=== PATIENT | female | born 1950 | race Caucasian/White ===

== ENCOUNTER 2016-12-28 08:28 | Inpatient (IN) | payer MEDICARE, OTHER ==
--- NOTE | ~2016-12-28 | HP ---
History And Physical [address] [id number] [facility] [place]. [address] NAME: JOON CARSON : 50 STATUS : ADM IN [facility]#: [id number] AGE: 66 ADM/REG DATE : 12/28/16 MR#: [id number] REPORT SERV DATE: 12/29/16 DICTATED BY: ROLAND QUINTERO III DATE: 12/28/16 REPORT STATUS : Draft TRANSCRIBED BY: MOLLY DATE: 12/28/16 DATE OF ADMISSION: 12/28/2016 HISTORY OF PRESENT ILLNESS: This 66-year-old female who was admitted to hospital emergently with evidence for small bowel obstruction. The patient complains of abdominal pain. The pain began yesterday afternoon. She describes diffuse nonlocalized abdominal pain. This has been associated with profuse nausea and vomiting. The patient's last bowel movement was Monday of this week. She had some diarrhea at that time. The patient presented to our emergency room today and was found to have radiographic evidence for small bowel obstruction. The patient states she has had three small bowel obstructions in the past, which have been treated nonoperatively. She states these occur about every three years. The patient states that she feels much better after an NG tube was placed. PAST MEDICAL HISTORY: 1. History of Bearden's esophagitis, treated with endoscopic RFA treatments. 2. History of multiple small bowel obstructions in the past, the last being about three years ago. 3. History of COPD. 4. Coronary artery disease. 5. History of myocardial infarction the past. 6. History of coronary artery stent placement, the last stent placement eight months ago with the patient being on Brilinta since that time. 7. History of pancreatitis. 8. Gastroesophageal reflux disease. 9. Degenerative joint disease. PAST SURGICAL HISTORY: Includes Ash fundoplication 30 years ago, cholecystectomy, hysterectomy, appendectomy. SOCIAL HISTORY: The patient is . She lives locally. She has a previous history of tobacco abuse. She has no history of alcohol use. FAMILY HISTORY: Positive for coronary artery disease and pulmonary disease and leukemia. ALLERGIES: MONTELUKAST, ADHESIVE TAPE, ESOMEPRAZOLE. MEDICATIONS: Albuterol, Augmentin, aspirin, Lipitor, Symbicort, Coreg, Nexium, Lasix, Atrovent, Linzess, Singulair, Roxicodone, prednisone, Brilinta, Spiriva. REVIEW OF SYSTEMS: The patient's 14-point review of systems is otherwise unremarkable. History And Physical [address] [address] NAME: JOON CARSON : 50 STATUS : ADM IN PAT#: [id number] AGE: 66 ADM/REG DATE : 12/28/16 MR#: [id number] REPORT SERV DATE: 12/29/16 DICTATED BY: ROLAND QUINTERO III DATE: 12/28/16 REPORT STATUS : Draft TRANSCRIBED BY: MOLLY DATE: 12/28/16 OBJECTIVE PHYSICAL EXAMINATION: GENERAL: This is an obese female, in no acute distress. She is alert and oriented x3. HEENT: Unremarkable. Cranial nerves II through XII are normal. LUNGS: Clear. CARDIAC: Normal. ABDOMEN: Obese and soft, nontender. She has a large overhanging panniculus. EXTREMITIES: Unremarkable. VITAL SIGNS: Blood pressure 115/60, pulse 79, temperature 98.8. LABORATORY DATA: White blood cell count elevated at 21,000, hematocrit 45. Electrolytes are unremarkable. Liver enzymes are normal. CT scan of the abdomen and pelvis which I reviewed shows evidence for distal small bowel obstruction. There is noted to be some gas and stool in the colon. ASSESSMENT: A 66-year-old female with: 1. Partial small bowel obstruction, with no evidence for peritonitis. 2. Elevated white blood cell count, which may be related to steroids. 3. History of recurrent small bowel obstructions in the past, treated nonoperatively. 4. Obesity. 5. Chronic obstructive pulmonary disease secondary to tobacco abuse. 6. Tobacco abuse. 7. History of Bearden's esophagitis, treated nonoperatively. 8. Coronary artery disease. 9. History of coronary artery stent placement, requiring chronic anticoagulation. 10.History of recent sinus infection for which the patient was taking Augmentin which started three days ago. PLAN: The patient has been admitted and started on parenteral fluids, bowel rest, and NG suction. I have explained to the patient and her that we will try to manage this nonoperatively if possible. I have explained that about 80% of the time this can be managed nonoperatively. If she does not respond to nonoperative management then surgical intervention will be required. We will continue the patient on recurrent Brilinta. This plan has been explained to the patient. Their questions have been answered. She understands and agrees to this as planned. MANI/MOLLY Roland Quintero III, M.D. / [id number] CC: History And Physical [address] [place] [address] NAME: JOON CARSON : 50 STATUS : ADM IN [facility]#: [id number] AGE: 66 ADM/REG DATE : 12/28/16 MR#: [id number] REPORT SERV DATE: 12/29/16 DICTATED BY: ROLAND QUINTERO III DATE: 12/28/16 REPORT STATUS : Draft TRANSCRIBED BY: MOLLY DATE: 12/28/16 Willow Dan III, M.D.
--- NOTE | ~2016-12-28 | DS ---
Discharge Summary [facility] [address] [place]. [address] NAME: JOON CARSON : 50 STATUS : DIS IN PAT#: [id number] AGE: 66 ADM/REG DATE : 12/28/16 MR#: [id number] REPORT SERV DATE: 01/10/17 DICTATED BY: ROLAND QUINTERO III DATE: 01/09/17 REPORT STATUS : Draft TRANSCRIBED BY: MOLLY DATE: 01/09/17 Data Collection from hospitalization DISCHARGE DIAGNOSIS(ES): 1. Partial small bowel obstruction - resolved. 2. History of Bearden's esophagitis. 3. History of chronic obstructive pulmonary disease. 4. Coronary artery disease. 5. History of myocardial infarction. 6. History of pancreatitis. 7. Gastroesophageal reflux disease. 8. Degenerative joint disease. 9. Former smoker. CONSULTATIONS: None. PROCEDURES PERFORMED: CT scan of the abdomen and pelvis without contrast, 12/28/2016. MEDICATIONS: Proventil two puffs via inhaler every four hours as needed and one nebulized inhalation twice a day as needed; Augmentin 875 mg twice a day; aspirin 81 mg at bedtime; Lipitor 40 mg at bedtime; Symbicort two puffs via inhaler twice a day; Coreg 3.125 mg at bedtime; Nexium 40 mg at bedtime; Lasix 20 mg daily as needed; Atrovent one nebulized inhalation twice a day as needed; Linzess 290 mg at bedtime; Singulair 10 mg at bedtime; Roxicodone 5 mg four times a day as needed; prednisone 2.5 mg daily; Brilinta 90 mg twice a day; Spiriva one capsule via inhaler daily; and magic mouthwash 10 mL four times a day as needed. CONDITION AT DISCHARGE: Stable. DISPOSITION: The patient was discharged home on a full liquid diet with activities as instructed. She would follow up with me as needed. HOSPITAL COURSE: This is a 66-year-old female who presented emergently to the hospital and was found to have evidence for small bowel obstruction. The patient said she has had three small bowel obstructions in the past which had been treated nonoperatively. She said these occur about every three years. The patient said she feels much better after the NG tube was placed. She was admitted to the hospital at this time for further evaluation and treatment. Upon admission, CT scan of the abdomen and pelvis showed evidence for distal small bowel obstruction. There were some gas and stool in the colon. White count was elevated at 21,000. Electrolytes were unremarkable. Liver enzymes were normal. Parenteral fluids, bowel rest, and NG suction had begun. We are going to try and manage this nonoperatively if possible. Brilinta was going to be continued. The following day, she said she was feeling better. She had less pain. NG tube was still in place. She remained n.p.o. A KUB was going to be performed. On 12/30/2016, she said she was feeling better. She was beginning to pass some gas per rectum. She had no complaints of abdominal pain. Her partial small bowel obstruction was improving. A small-bowel follow-through was going to be performed. NG tube was discontinued. On 12/31/2016, she felt well and wanted to go home. She was Discharge Summary [address] [address] NAME: JOON CARSON : 50 STATUS : DIS IN PAT#: [id number] AGE: 66 ADM/REG DATE : 12/28/16 MR#: [id number] REPORT SERV DATE: 01/10/17 DICTATED BY: ROLAND QUINTERO III DATE: 01/09/17 REPORT STATUS : Draft TRANSCRIBED BY: MOLLY DATE: 01/09/17 tolerating liquids. She had no nausea or vomiting. She had no abdominal pain. Discharge instructions were given. Her diet was advanced. Due to her improved and stable condition, she was discharged home with the above-stated instructions. Information collected by: Ami Acuna I submit the above information as my discharge summary. TG/MOLLY Roland Quintero III, M.D. / [id number] CC: Willow Dan III, M.D.
[~2016-12-28 08:28] MED LIST: ADVAIR250 INH; ALBUTEROL5 INH; ALEVE220 MG PO; AMITIZA24 PO; AMITIZA8 MCG PO; ASAB PO; ASABAYER PO; BRILINTA90 MG PO; CALTRA600D PO; CLARIT10 PO; COMBIVENT INH; COMBIVENT INHAL15 GM INH; COMBIVENT RESPIM4 GM INH; COREG3 PO; COREG6 PO; CYANO1000T PO; DUONEB INH; FLEX PO; ISOSORB DIN30 MG PO; KLONO5 PO; L20 PO; L40 PO; L80 PO; LEVAQUIN5T PO; LEVAQUIN750 MG PO; LINZESS 290 M290 MCG PO; LIPITOR10 PO; LIPITOR20 PO; LIPITOR40 PO; NEXIUM20 M1 PO; NEXIUM40 PO; NORCO1 TA1 PO; NORCO1 TA2 PO; OXYCOD PO; P5 PO; PCET PO; PROAIR HFA INH; PROTONIX20 MG PO; PROVHFA INH; SINGULAIR1 PO; SPIRIVA INH; SYMBICORT 160/41 INH INH; T PO; VITAMIN B-12; VITAMIN D1000 UNI1 PO; ZOCOR40 PO
[2016-12-28 08:29] LABS: BASOPHILS 0.2 %; BASOPHILS ABSOLUTE 0.04 10/3/uL (0.0-0.16); EOSINOPHILS 0.7 %; EOSINOPHILS ABSOLUTE 0.16 10/3/uL (0.0-0.53); IMMATURE GRANULOCYTES 0.3 %; IMMATURE GRANULOCYTES ABSOLUTE 0.07 10/3/uL (0.0-0.11); LYMPHOCYTES 10.7 %; MEAN CORPUSCULAR HEMOGLOB 30.1 pg (26.0-34.0); MEAN CORPUSCULAR VOLUME 88.5 fL (80-100); MEAN PLATELET VOLUME 10.7 fL (9.2-13.0); MONOCYTES 5.2 %; MONOCYTES ABSOLUTE 1.11 10/3/uL (0.21-1.20); NEUTROPHILS 82.9 %; NEUTROPHILS ABSOLUTE 17.79 10/3/uL (2.02-8.40); PLATELET COUNT 222 10/3/uL (150-400); RBC DISTRIBUTION WIDTH 14.6 % (12.0-16.0)
[2016-12-28 08:30] LABS: ER CBC TAT 0 Hrs 18 Mins; HEMATOCRIT 45.6 % (36.0-48.0); HEMOGLOBIN 15.5 g/dL (12.0-16.0); MANUAL DIFF NO %; RED CELL COUNT 5.15 10/6/uL (4.0-5.6); WHITE BLOOD CELLS 21.5 10/3/uL (4.5-10.5)
[2016-12-28 08:44] LABS: CHLORIDE, SERUM 107 MMOL/L (96-112); CO2 (CARBON DIOXIDE) 22 MMOL/L (24-34); CREATININE 1.22 MG/DL (0.55-1.02); GFR AFRICAN AMERICAN 53 ML/MIN (>=60); GFR NON AFRICAN AMERICAN 46 ML/MIN (>=60); LACTATE 0.9 MMOL/L (0.3-2.4); POTASSIUM, SERUM 4.4 MMOL/L (3.5-5.3); SGPT(ALT) 33 U/L (5-65); SODIUM, SERUM 139 MMOL/L (135-148); TOTAL BILIRUBIN 0.5 MG/DL (0-1.2); TOTAL PROTEIN 7.9 G/DL (6.0-8.5); TROPONIN I <0.02 NG/ML (<0.05)
[2016-12-28 08:49] LABS: A/G RATIO 1.1 (0.7-1.9); ALBUMIN 4.1 G/DL (3.5-5.0); ALKALINE PHOSPHATASE 57 U/L (45-117); BUN (BLOOD UREA NITROGEN) 25 MG/DL (6-23); GLOBULIN 3.8 G/DL (2.5-4.1); GLUCOSE, SERUM 156 MG/DL (60-99); SGOT(AST) 25 U/L (5-40)
[2016-12-28] MEDS ORDERED: AUG875 PO (09:14)
[2016-12-28] MEDS ORDERED: PREDNISONE2.5 MG PO (09:17)
[2016-12-28] MEDS ORDERED: OXYCOD PO (09:17)
[2016-12-28] MEDS ORDERED: SYMBICORT 160/41 INH INH (09:18)
[2016-12-28] MEDS ORDERED: SPIRIVA INH (09:18)
[2016-12-28] MEDS ORDERED: MAGIC MOUTHWASH PO (09:19)
[2016-12-28] MEDS ORDERED: ATROVENTUD INH (09:26)
[2016-12-28 17:31] LABS: ASCORBIC ACID (UR NOT ORDER) 40 (NEG); BILIRUBIN, URINE NEGATIVE (NEG); ER URINALYSIS TAT 0 Hrs 20 Mins; KETONE, URINE NEGATIVE (NEG); LEUKOCYTE ESTERASE(NOT OR NEG (NEG); NITRITE (URINE) NEG (NEG); WBC (NOT ORDERED) (RFLEX) 2 (0-5)
[2016-12-29 05:05] LABS: BASOPHILS 0.3 %; BASOPHILS ABSOLUTE 0.03 10/3/uL (0.0-0.16); EOSINOPHILS 0.3 %; EOSINOPHILS ABSOLUTE 0.04 10/3/uL (0.0-0.53); HEMOGLOBIN 12.7 g/dL (12.0-16.0); IMMATURE GRANULOCYTES 0.3 %; IMMATURE GRANULOCYTES ABSOLUTE 0.04 10/3/uL (0.0-0.11); LYMPHOCYTES ABSOLUTE 1.67 10/3/uL (0.67-4.30); MEAN CORPUSCULAR HEMOGLOB 29.6 pg (26.0-34.0); MEAN PLATELET VOLUME 10.6 fL (9.2-13.0); MONOCYTES 7.4 %; MONOCYTES ABSOLUTE 0.89 10/3/uL (0.21-1.20); NEUTROPHILS 77.7 %; PLATELET COUNT 172 10/3/uL (150-400); RBC DISTRIBUTION WIDTH 15.1 % (12.0-16.0); RED CELL COUNT 4.29 10/6/uL (4.0-5.6)
[2016-12-29 05:11] LABS: HEMATOCRIT 39.9 % (36.0-48.0); MANUAL DIFF NO %; MEAN CORPUS HGB CONC 31.8 g/dL (32.0-36.0)
[2016-12-29 07:15] LABS: CHLORIDE, SERUM 109 MMOL/L (96-112); CO2 (CARBON DIOXIDE) 24 MMOL/L (24-34); CREATININE 0.82 MG/DL (0.55-1.02); GFR AFRICAN AMERICAN 86 ML/MIN (>=60); GFR NON AFRICAN AMERICAN 75 ML/MIN (>=60); SGOT(AST) 17 U/L (5-40); SGPT(ALT) 19 U/L (5-65); SODIUM, SERUM 141 MMOL/L (135-148)
[2016-12-29 07:16] LABS: A/G RATIO 1.4 (0.7-1.9); ALBUMIN 2.7 G/DL (3.5-5.0); ALKALINE PHOSPHATASE 32 U/L (45-117); BUN (BLOOD UREA NITROGEN) 19 MG/DL (6-23); CALCIUM, SERUM 7.5 MG/DL (8.5-10.4); GLUCOSE, SERUM 98 MG/DL (60-99); TOTAL PROTEIN 4.7 G/DL (6.0-8.5)
[2016-12-30 11:09] LABS: BASOPHILS 0.2 %; BASOPHILS ABSOLUTE 0.02 10/3/uL (0.0-0.16); EOSINOPHILS 0.6 %; EOSINOPHILS ABSOLUTE 0.08 10/3/uL (0.0-0.53); IMMATURE GRANULOCYTES 0.2 %; IMMATURE GRANULOCYTES ABSOLUTE 0.02 10/3/uL (0.0-0.11); LYMPHOCYTES 6.3 %; LYMPHOCYTES ABSOLUTE 0.79 10/3/uL (0.67-4.30); MEAN CORPUS HGB CONC 32.4 g/dL (32.0-36.0); MEAN CORPUSCULAR HEMOGLOB 29.7 pg (26.0-34.0); MEAN CORPUSCULAR VOLUME 91.6 fL (80-100); MEAN PLATELET VOLUME 10.1 fL (9.2-13.0); MONOCYTES 6.4 %; NEUTROPHILS 86.3 %; NEUTROPHILS ABSOLUTE 10.76 10/3/uL (2.02-8.40); PLATELET COUNT 165 10/3/uL (150-400); RBC DISTRIBUTION WIDTH 14.6 % (12.0-16.0); RED CELL COUNT 4.04 10/6/uL (4.0-5.6); WHITE BLOOD CELLS 12.5 10/3/uL (4.5-10.5)
[2016-12-30 11:10] LABS: MANUAL DIFF NO %
[2016-12-30 12:20] LABS: CALCIUM, SERUM 8.1 MG/DL (8.5-10.4); CHLORIDE, SERUM 113 MMOL/L (96-112); CO2 (CARBON DIOXIDE) 23 MMOL/L (24-34); CREATININE 0.83 MG/DL (0.55-1.02); GFR AFRICAN AMERICAN 85 ML/MIN (>=60); GFR NON AFRICAN AMERICAN 73 ML/MIN (>=60); POTASSIUM, SERUM 4.5 MMOL/L (3.5-5.3); SODIUM, SERUM 146 MMOL/L (135-148)
[2016-12-30 12:21] LABS: BUN (BLOOD UREA NITROGEN) 11 MG/DL (6-23); GLUCOSE, SERUM 133 MG/DL (60-99)
[2016-12-31 08:18] LABS: BASOPHILS 0.2 %; BASOPHILS ABSOLUTE 0.02 10/3/uL (0.0-0.16); EOSINOPHILS 2.7 %; EOSINOPHILS ABSOLUTE 0.25 10/3/uL (0.0-0.53); HEMATOCRIT 38.9 % (36.0-48.0); HEMOGLOBIN 12.2 g/dL (12.0-16.0); IMMATURE GRANULOCYTES 0.3 %; IMMATURE GRANULOCYTES ABSOLUTE 0.03 10/3/uL (0.0-0.11); LYMPHOCYTES 13.8 %; MEAN CORPUS HGB CONC 31.4 g/dL (32.0-36.0); MEAN CORPUSCULAR HEMOGLOB 29.2 pg (26.0-34.0); MEAN CORPUSCULAR VOLUME 93.1 fL (80-100); MEAN PLATELET VOLUME 10.9 fL (9.2-13.0); MONOCYTES 6.3 %; MONOCYTES ABSOLUTE 0.59 10/3/uL (0.21-1.20); NEUTROPHILS 76.7 %; NEUTROPHILS ABSOLUTE 7.24 10/3/uL (2.02-8.40); PLATELET COUNT 175 10/3/uL (150-400); RBC DISTRIBUTION WIDTH 14.8 % (12.0-16.0); RED CELL COUNT 4.18 10/6/uL (4.0-5.6); WHITE BLOOD CELLS 9.4 10/3/uL (4.5-10.5)
[2016-12-31 08:20] LABS: MANUAL DIFF NO %
[2016-12-31 08:30] LABS: BUN (BLOOD UREA NITROGEN) 8 MG/DL (6-23); CALCIUM, SERUM 8.1 MG/DL (8.5-10.4); CHLORIDE, SERUM 110 MMOL/L (96-112); CO2 (CARBON DIOXIDE) 22 MMOL/L (24-34); CREATININE 0.88 MG/DL (0.55-1.02); GFR AFRICAN AMERICAN 79 ML/MIN (>=60); GFR NON AFRICAN AMERICAN 68 ML/MIN (>=60); POTASSIUM, SERUM 4.3 MMOL/L (3.5-5.3); SODIUM, SERUM 141 MMOL/L (135-148)
[2016-12-31 08:31] LABS: GLUCOSE, SERUM 106 MG/DL (60-99)
== END 2016-12-31 12:39 | disposition home or self-care (01) | DRG 390 ==
LOC: ER 08:28 → 5SO 09:46
PROVIDERS: Nurse Practitioner; Surgery
DX: K56.69 Other intestinal obstruction (principal); J44.9 Chronic obstructive pulmonary disease, unspecified; J45.909 Unspecified asthma, uncomplicated; I25.2 Old myocardial infarction; I25.10 Atherosclerotic heart disease of native coronary artery without angina pectoris; F17.210 Nicotine dependence, cigarettes, uncomplicated; Z95.5 Presence of coronary angioplasty implant and graft; Z98.890 Other specified postprocedural states; Z90.710 Acquired absence of both cervix and uterus; Z90.49 Acquired absence of other specified parts of digestive tract; Z79.899 Other long term (current) drug therapy; Z79.82 Long term (current) use of aspirin
CPT/HCPCS: 36598; 74000; 74176; 74250; 80048; 80053; 81001; 83605; 83690; 84484; 85025; 93005; 94640; 96374; 99285; A9270-GY; J1170; J2405

== ENCOUNTER 2017-02-01 05:28 | Day surgery (SDC) | payer MEDICARE, OTHER ==
[2017-01-27 13:27] LABS: BASOPHILS 0.2 %; BASOPHILS ABSOLUTE 0.02 10/3/uL (0.0-0.16); EOSINOPHILS 2.8 %; EOSINOPHILS ABSOLUTE 0.25 10/3/uL (0.0-0.53); HEMATOCRIT 39.8 % (36.0-48.0); HEMOGLOBIN 13.2 g/dL (12.0-16.0); IMMATURE GRANULOCYTES 0.2 %; IMMATURE GRANULOCYTES ABSOLUTE 0.02 10/3/uL (0.0-0.11); LYMPHOCYTES 19.3 %; LYMPHOCYTES ABSOLUTE 1.75 10/3/uL (0.67-4.30); MEAN CORPUSCULAR HEMOGLOB 29.4 pg (26.0-34.0); MEAN PLATELET VOLUME 12.2 fL (9.2-13.0); MONOCYTES 7.2 %; MONOCYTES ABSOLUTE 0.65 10/3/uL (0.21-1.20); NEUTROPHILS 70.3 %; NEUTROPHILS ABSOLUTE 6.39 10/3/uL (2.02-8.40); PLATELET COUNT 181 10/3/uL (150-400); RBC DISTRIBUTION WIDTH 14.9 % (12.0-16.0); RED CELL COUNT 4.49 10/6/uL (4.0-5.6); WHITE BLOOD CELLS 9.1 10/3/uL (4.5-10.5)
[2017-01-27 13:28] LABS: MANUAL DIFF NO %; MEAN CORPUS HGB CONC 33.2 g/dL (32.0-36.0); MEAN CORPUSCULAR VOLUME 88.6 fL (80-100)
--- NOTE | ~2017-02-01 | OP ---
Record Of Operation [facility] [address] [place]. [address] NAME: JOON MADRID : 50 STATUS : [place] [facility] [place] PAT#: [id number] AGE: 66 ADM/REG DATE : 02/01/17 MR#: [id number] REPORT SERV DATE: 02/01/17 DICTATED BY: ROLAND QUINTERO III DATE: 02/01/17 REPORT STATUS : Draft TRANSCRIBED BY: MOLLY DATE: 02/01/17 DATE OF PROCEDURE: 02/01/2017 PREOPERATIVE DIAGNOSIS: Bearden's esophagitis requiring frequent endoscopy and need for frequent IV access, with poor peripheral IV access. POSTOPERATIVE DIAGNOSIS: Bearden's esophagitis requiring frequent endoscopy and need for frequent IV access, with poor peripheral IV access. PROCEDURE: Right subclavian vein Port-A-Cath placement with fluoroscopy and removal of nonfunctioning left subclavian vein Port-A-Cath. ANESTHESIA: General with intubation. COMPLICATIONS: None. ESTIMATED BLOOD LOSS: Less than 5 mL. SPECIMENS: Port-A-Cath for identification. DRAINS: None. LAP AND SPONGE COUNT: Correct x3. BRIEF HISTORY: This 66-year-old female has a history of Bearden's esophagitis requiring frequent endoscopy for treatment. She has very poor peripheral IV access. She has a Port-A Cath, which was placed a year ago which is no longer functioning. It was felt that removal of this Port-A-Cath with a new Port-A-Cath was indicated. This procedure, the risks, benefits, and alternatives including, but not limited to the risk for bleeding, infection, pneumothorax, air embolus, pericardial tamponade, failure of the new port to function, infection of the port or subclavian vein thrombosis requiring removal the port, pneumothorax, and unforeseen complications including deep venous thrombosis, pulmonary embolus, myocardial infarction, stroke, pneumonia, and were fully explained to the patient prior to surgery. Her questions were answered. She understood the risks and agreed to surgery as planned. DESCRIPTION OF PROCEDURE: After being properly identified and after discussing risks of surgery with her again in the preoperative area, the patient was taken to the operating room and placed in the supine position on the operating room table. General anesthesia was administered, and she was intubated without difficulty. The upper chest and neck areas were prepped and draped sterilely in the usual fashion. After an appropriate "time-out" per JCAHO standards, an 18-gauge needle was used to identify the right subclavian vein. The vein was identified on the first pass of the needle. A guidewire was passed through the needle and the needle was removed. Fluoroscopy was performed. Initially, the guidewire went preferentially into the internal jugular vein. Several passes were made under fluoroscopy in order to change the position of the guidewire and direct it into the superior Record Of Operation [address] [address] NAME: JOON MADRID : 50 STATUS : REG [facility] PAT#: [id number] AGE: 66 ADM/REG DATE : 02/01/17 MR#: [id number] REPORT SERV DATE: 02/01/17 DICTATED BY: ROLAND QUINTERO III DATE: 02/01/17 REPORT STATUS : Draft TRANSCRIBED BY: MOLLY DATE: 02/01/17 vena cava. After this was confirmed, a small transverse incision was made at the exit site of the guidewire from the skin. A subcutaneous infraclavicular pocket was made of the appropriate size for the Port-A-Cath housing. The Port-A-Cath housing and tubing were assembled, and flushed with heparin solution, and the tubing cut to the appropriate length. The introducer was then placed over the guidewire. The guidewire and inner dilator were removed. The Port-A-Cath tubing was then placed through the outer sheath as this was peeled away. This went very smoothly. The Port-A-Cath housing was positioned in the infraclavicular pocket. It was secured in place with 2-0 silk sutures. Repeat fluoroscopy was performed, confirming the tip of the Port-A-Cath tubing to be in the correct position in the superior vena cava. The port was accessed with a Grissom needle. It was aspirated and blood easily returned. It was flushed with a heparin solution and noted to flush easily. Hemostasis was assured. The subcutaneous tissue was closed with a running 3-0 Vicryl suture. The skin was closed with running subcuticular 4-0 Monocryl stitch. The incision was injected with 0.5% Marcaine. We then turned our attention to the left infraclavicular Port-A-Cath. A small incision was made directly over the Port-A-Cath. The incision was continued through the subcutaneous tissue. Hemostasis was controlled with cautery. The capsule around the Port-A-Cath was divided. The sutures holding the Port-A-Cath in place were divided. The Port-A-Cath housing and tubing were removed. The entire tubing was removed. Pressure was held at the exit site to prevent air embolus. This exit site was closed with a 3-0 Vicryl suture. Hemostasis was assured. The subcutaneous tissue was closed with a running 3-0 Vicryl suture. The skin was closed with a running subcuticular 4- 0 Monocryl stitch. The incision was injected with 0.5% Marcaine. Dressings were applied. Anesthesia was reversed, and the patient was taken to the recovery room in stable condition. She tolerated the procedure well. Her family was informed of results of surgery. The patient was discharged when stable and comfortable and after chest x-ray has been cleared per Radiology. Her family was advised that she should keep wounds clean and dry for 48 hours, that she should not drive for two to three days after surgery or while using narcotics, and that she should resume her usual medications. They are advised that she should resume her anticoagulants, i.e., aspirin and Brilinta, tomorrow. She was asked to return in two weeks for followup or sooner if any fever, chills, wound drainage, or other problems prior to that time. She was given a prescription for Percocet 7.5 one t.i.d., #12, as needed for pain, which she was advised not to use while driving or with other narcotics. MANI/MOLLY Roland Quintero III, M.D. / [id number] CC: Willow Dan III, M.D.
--- NOTE | ~2017-02-01 | PREOPHP ---
PreOp History and Physical [address] [place]. [address] NAME: JOON MADRID : 50 STATUS : [facility]#: [id number] AGE: 66 ADM/REG DATE : 02/01/17 MR#: [id number] REPORT SERV DATE: 02/23/17 DICTATED BY: ROLAND QUINTERO III DATE: 01/22/17 REPORT STATUS : Draft TRANSCRIBED BY: MOLLY DATE: 01/22/17 HISTORY OF PRESENT ILLNESS: This 66-year-old female comes to the operating room for removal of a nonfunctioning Port-A-Cath and placement of a new Port-A-Cath. The patient has a history of chronic poor peripheral IV access. She has a history of Bearden's esophagitis and multiple medical problems requiring frequent inpatient and outpatient hospitalization and the need for chronic IV access. She has a history of severe Bearden esophagitis requiring frequent endoscopic surveillance. She has a very poor peripheral IV access. She has a Port-A-Cath, which was placed one year ago, which is not functioned well since that time and is now no longer functioning. She comes now for removal of this nonfunctioning Port-A-Cath and placement of a new Port-A-Cath. PAST MEDICAL HISTORY: 1. History of Bearden esophagitis, requiring frequent endoscopic treatments. 2. History of multiple small bowel obstructions in the past, most recently requiring hospitalization with NG suction. 3. COPD. 4. History of coronary artery disease. 5. History of myocardial infarction in the past. 6. History of coronary artery stent placement with the last stent being placed approximately eight months ago with the patient being on Brilinta since that time. 7. Pancreatitis. 8. History of gastroesophageal reflux disease. PAST SURGICAL HISTORY: Includes Ash fundoplication, cholecystectomy, hysterectomy, appendectomy, and Port-A-Cath placement. SOCIAL HISTORY: The patient is . She lives locally. She has a previous tobacco abuse. She has no history of alcohol use. FAMILY HISTORY: Positive for coronary artery disease, pulmonary disease, and leukemia. ALLERGIES: MONTELUKAST, ADHESIVE TAPE, AND ESOMEPRAZOLE. MEDICATIONS: Albuterol, Augmentin, aspirin, Lipitor, Symbicort, Coreg, Nexium, Lasix, Atrovent, Linzess, Singulair, Roxicodone, prednisone, Brilinta, and Spiriva. REVIEW OF SYSTEMS: The patient's 14-point review of systems is otherwise unremarkable. PHYSICAL EXAMINATION: GENERAL: This is obese female, in no acute distress. She is alert and oriented x3. HEENT: Unremarkable. NEUROLOGIC: Cranial nerves 2 through 12 are normal. LUNGS: Clear. CARDIAC: Normal. ABDOMEN: Soft and nontender. PreOp History and Physical [address] [address] NAME: JONO MADRID : 50 STATUS : [facility]#: [id number] AGE: 66 ADM/REG DATE : 02/01/17 MR#: [id number] REPORT SERV DATE: 02/23/17 DICTATED BY: ROLAND QUINTERO III DATE: 01/22/17 REPORT STATUS : Draft TRANSCRIBED BY: MOLLY DATE: 01/22/17 The patient has a left infraclavicular Port-A-Cath in place. There is no evidence for infection or any abnormalities externally noted. VITAL SIGNS: The patient's blood pressure 115/60, pulse 79, temperature 98.8. ASSESSMENT: 66-year-old female with: 1. Poor peripheral IV access, with need for removal of nonfunctioning Port-A-Cath and placement of a new Port-A-Cath. 2. History of chronic obstructive pulmonary disease secondary tobacco abuse. 3. Coronary artery disease secondary tobacco abuse. 4. Myocardial infarction in the past. 5. History of coronary artery stent placement. 6. History of recurrent small bowel obstructions. 7. Degenerative joint disease. 8. Gastroesophageal reflux disease. PLAN: The patient comes to the operating room now for removal of a nonfunctioning Port-A- Cath and placement of a new subclavian Port-A-Cath. This procedure, the risks, benefits, and alternatives, including not limited to the risk for bleeding, infection, pneumothorax, air embolus, pericardial tamponade, failure of the port to function, infection of the port or subclavian vein thrombosis requiring removal the port, dislodgement of the Port-A-Cath tubing requiring extraction, and unforeseen complications including deep venous thrombosis, pulmonary embolus, myocardial infarction, stroke, pneumonia, and , have been explained to the patient prior to surgery. The fact that she is at increased risk for thromboembolic complications while her Brilinta is held perioperatively has been explained as well as increased risk of bleeding because of use of this medication. The possibility that we may not be able to successfully place a Port-A-Cath due to previous Port-A-Cath placement in the past and scarring has been explained. The patient's questions have been answered. She clearly understands the risks and agrees to surgery as planned. RHJ/MOLLY Roland Quintero III, M.D. / [id number]
[~2017-02-01 05:28] MED LIST changes: +ATROVENTUD INH; +AUG875 PO; +MAGIC MOUTHWASH PO; +PREDNISONE2.5 MG PO
[2017-02-01 06:51] LABS: CHLORIDE, SERUM 106 MMOL/L (96-112); CREATININE 1.25 MG/DL (0.55-1.02); GFR AFRICAN AMERICAN 52 ML/MIN (>=60); GFR NON AFRICAN AMERICAN 45 ML/MIN (>=60); POTASSIUM, SERUM 4.3 MMOL/L (3.5-5.3); SGOT(AST) 26 U/L (5-40); SGPT(ALT) 38 U/L (5-65); SODIUM, SERUM 142 MMOL/L (135-148)
[2017-02-01 06:52] LABS: A/G RATIO 1.3 (0.7-1.9); ALBUMIN 3.8 G/DL (3.5-5.0); ALKALINE PHOSPHATASE 50 U/L (45-117); BUN (BLOOD UREA NITROGEN) 20 MG/DL (6-23); CALCIUM, SERUM 9.6 MG/DL (8.5-10.4); CO2 (CARBON DIOXIDE) 29 MMOL/L (24-34); GLUCOSE, SERUM 75 MG/DL (60-99); TOTAL BILIRUBIN 0.5 MG/DL (0-1.2); TOTAL PROTEIN 6.8 G/DL (6.0-8.5)
== END 2017-02-01 13:56 | disposition home or self-care (01) ==
LOC: SDC 05:28
PROVIDERS: Surgery
PROC: 0JPV3XZ Removal of Tunneled Vascular Access Device from Upper Extremity Subcutaneous Tissue and Fascia, Percutaneous Approach (ICD-10-PCS; 2017-02-01)
PROC: 05H533Z Insertion of Infusion Device into Right Subclavian Vein, Percutaneous Approach (ICD-10-PCS; principal; 2017-02-01 06:45)
PROC: B516YZA Fluoroscopy of Right Subclavian Vein using Other Contrast, Guidance (ICD-10-PCS; 2017-02-01 06:45)
DX: T82.594A Other mechanical complication of infusion catheter, initial encounter (principal); J44.9 Chronic obstructive pulmonary disease, unspecified; I25.10 Atherosclerotic heart disease of native coronary artery without angina pectoris; I25.2 Old myocardial infarction; J45.909 Unspecified asthma, uncomplicated; K22.70 Barrett's esophagus without dysplasia; K21.9 Gastro-esophageal reflux disease without esophagitis; Z88.8 Allergy status to other drugs, medicaments and biological substances; Z87.891 Personal history of nicotine dependence
CPT/HCPCS: 36415; 71010; 71020; 77001; 80053; 85025; 88300; 93005; A9270-GY; C1751; C1769; J0690; J1170; J2250; J2370; J2405; J3010